=== PATIENT | female | born 1960 ===

== ENCOUNTER 2019-12-19 09:29 | Outpatient (CLI) | payer OTHER | END 2019-12-19 09:32 | disposition home or self-care (01) | LOC: SONOGRAMA 09:29 | DX: E04.2 Nontoxic multinodular goiter (principal) ==

== ENCOUNTER 2021-11-01 08:51 | Outpatient (CLI) | payer OTHER | END 2021-11-01 08:58 | disposition home or self-care (01) | LOC: SONOGRAMA 08:51 | PROVIDERS: ATTEND Pathology Anatomic Pathology & Clinical Pathology | DX: E04.1 Nontoxic single thyroid nodule (principal) ==